=== PATIENT | male | born 1985 | race Caucasian/White ===

== ENCOUNTER 2019-06-29 14:16 | Emergency (ER) | payer BC ==
[2019-06-29 14:22] VITALS: RESP 18; TEMP 99
[2019-06-29] MEDS ORDERED: KETOROLAC 30 MG/ML 1 ML VIAL IVP STA (14:32)
[2019-06-29] MEDS ORDERED: SODIUM CHLORIDE 0.9% 2,000 ML IV STA (14:32)
[2019-06-29] MEDS ORDERED: ONDANSETRON 4 MG/2 ML VIAL IVP STA (14:32)
--- NOTE | 2019-06-29 14:53 | ED ---
Abdominal Pain HPI - General Chief Complaint: Abdominal Pain Stated Complaint: Kidney Stone Time Seen by Provider: 06/29/19 14:26 Source: patient, RN notes reviewed Mode of arrival: ambulatory Limitations: no limitations - History of Present Illness Initial Comments: This a 33-year-old male presents emergency Department chief complaint of severe left flank pain. Patient states this started yesterday morning at 3 AM. Patient states that the pain is very similar to his prior kidney stones. Patient's had some nausea and vomiting no diarrhea no constipation no prior abdominal surgeries. Patient states that this pain is unbearable this point. He did try some medications at home with no relief the symptoms he states there is slight dysuria no hematuria. He did take some Pyridium. Patient denies chest pain, shortness breath, fever, chills. - Related Data Previous Rx's Medication Instructions Recorded Ketorolac [Toradol] 10 mg PO Q8HR #15 tab 06/29/19 Ondansetron Odt [Zofran Odt] 4 mg PO Q8HR PRN #10 tab 06/29/19 Tamsulosin [Flomax] 0.4 mg PO DAILY #7 cap 06/29/19 Allergies Allergy/AdvReac Type Severity Reaction Status Date / Time No Known Allergies Allergy Verified 06/29/19 14:18 Review of Systems ROS Statement: Those systems with pertinent positive or pertinent negative responses have been documented in the HPI. ROS Other: All systems not noted in ROS Statement are negative. Past Medical History Additional Past Medical History / Comment(s): kidney stones History of Any Multi-Drug Resistant Organisms: None Reported Past Surgical History: No Surgical Hx Reported Past Psychological History: No Psychological Hx Reported Smoking Status: Never smoker Past Alcohol Use History: None Reported Past Drug Use History: None Reported General Exam Limitations: no limitations General appearance: alert, in no apparent distress Head exam: Present: atraumatic, normocephalic, normal inspection Eye exam: Present: normal appearance, PERRL, EOMI. Absent: scleral icterus, conjunctival injection, periorbital swelling Respiratory exam: Present: normal lung sounds bilaterally. Absent: respiratory distress, wheezes, rales, rhonchi, stridor Cardiovascular Exam: Present: regular rate, normal rhythm, normal heart sounds. Absent: systolic murmur, diastolic murmur, rubs, gallop, clicks GI/Abdominal exam: Present: soft, normal bowel sounds. Absent: distended, tenderness, guarding, rebound, rigid Back exam: Present: CVA tenderness (L). Absent: CVA tenderness (R) Neurological exam: Present: alert, oriented X3, CN II-XII intact Skin exam: Present: warm, dry, intact, normal color. Absent: rash Course Vital Signs 06/29/19 14:18 Temperature 99 F Pulse Rate 85 Respiratory 18 Rate Blood Pressure 140/88 O2 Sat by Pulse 97 Oximetry - Reevaluation(s) Reevaluation #1: 06/29/19 16:27 Patient reevaluated and updated on results patient is resting comfortably and has no complaints of pain. Medical Decision Making - Medical Decision Making Patient presented for left flank pain. Patient found to have a 3 mm UVJ stone. Patients pain has resolved this time. Patient discharged with Toradol, Zofran, Flomax and, according. Return parameters discussed. Patient was nitrite positive those contaminant from taking Pyridium. - Lab Data Result diagrams: 06/29/19 15:10 06/29/19 15:10 Lab Results 06/29/19 06/29/19 06/29/19 Range/Units 15:10 15:10 15:10 WBC 14.7 H (3.8-10.6) k/uL RBC 4.84 (4.30-5.90) m/uL Hgb 14.8 (13.0-17.5) gm/dL Hct 43.1 (39.0-53.0) % MCV 89.0 (80.0-100.0) fL MCH 30.6 (25.0-35.0) pg MCHC 34.4 (31.0-37.0) g/dL RDW 12.9 (11.5-15.5) % Plt Count 251 (150-450) k/uL Neutrophils % 85 % Lymphocytes % 10 % Monocytes % 4 % Eosinophils % 0 % Basophils % 0 % Neutrophils # 12.5 H (1.3-7.7) k/uL Lymphocytes # 1.4 (1.0-4.8) k/uL Monocytes # 0.6 (0-1.0) k/uL Eosinophils # 0.1 (0-0.7) k/uL Basophils # 0.0 (0-0.2) k/uL Sodium 136 L (137-145) mmol/L Potassium 4.1 (3.5-5.1) mmol/L Chloride 102 (98-107) mmol/L Carbon Dioxide 25 (22-30) mmol/L Anion Gap 9 mmol/L BUN 19 (9-20) mg/dL Creatinine 1.41 H (0.66-1.25) mg/dL Est GFR (CKD-EPI)AfAm 76 (>60 ml/min/1.73 sqM) Est GFR (CKD-EPI)NonAf 66 (>60 ml/min/1.73 sqM) Glucose 114 H (74-99) mg/dL Calcium 9.3 (8.4-10.2) mg/dL Total Bilirubin 1.3 (0.2-1.3) mg/dL AST 26 (17-59) U/L ALT 29 (4-49) U/L Alkaline Phosphatase 77 (38-126) U/L Total Protein 7.9 (6.3-8.2) g/dL Albumin 4.5 (3.5-5.0) g/dL Amylase 39 (30-110) U/L Lipase 27 (23-300) U/L Urine Color Dark Brown Urine Appearance Clear (Clear) Urine pH 5.5 (5.0-8.0) Ur Specific [place] 1.043 H (1.001-1.035) Urine Protein Trace H (Negative) Urine Glucose (UA) Negative (Negative) Urine Ketones Negative (Negative) Urine Blood Negative (Negative) Urine Nitrite Positive (Negative) Urine Bilirubin 1+ H (Negative) Urine Urobilinogen 3.0 (<2.0) mg/dL Ur Leukocyte Esterase Negative (Negative) Urine RBC 3 (0-5) /hpf Urine WBC 2 (0-5) /hpf Ur Squamous Epith Cells 2 (0-4) /hpf Calcium Oxalate Crystal Moderate H (None) /hpf Urine Mucus Moderate H (None) /hpf Disposition Clinical Impression: Left ureteral calculus Disposition: HOME SELF-CARE Condition: Stable Instructions (If sedation given, give patient instructions): Kidney Stones (ED) Additional Instructions: Please return to the Emergency Department if symptoms worsen or any other concerns. Prescriptions: Tamsulosin [Flomax] 0.4 mg PO DAILY #7 cap Ketorolac [Toradol] 10 mg PO Q8HR #15 tab Ondansetron Odt [Zofran Odt] 4 mg PO Q8HR PRN #10 tab PRN Reason: Nausea Is patient prescribed a controlled substance at d/c from ED?: No Referrals: None,Stated [Primary Care Provider] - 1-2 days Ke Bunn MD [STAFF PHYSICIAN] - 1-2 days Time of Disposition: 16:30
[2019-06-29 15:27] LABS: Basophils % (A) 0 %; Eosinophils # (A) 0.1 k/uL (0-0.7); Eosinophils % (A) 0 %; HCT 43.1 % (39.0-53.0); HGB 14.8 gm/dL (13.0-17.5); Lymphocytes # (A) 1.4 k/uL (1.0-4.8); Lymphocytes % (A) 10 %; MCH 30.6 pg (25.0-35.0); MCHC 34.4 g/dL (31.0-37.0); Mean Platelet Volume 7.6; Monocytes # (A) 0.6 k/uL (0-1.0); Monocytes % (A) 4 %; Neutrophils # (A) 12.5 k/uL (1.3-7.7); Neutrophils % (A) 85 %; Platelet Count 251 k/uL (150-450); RBC 4.84 m/uL (4.30-5.90); RDW 12.9 % (11.5-15.5); WBC 14.7 k/uL (3.8-10.6)
[2019-06-29 15:31] LABS: Appearance,Urine Clear (Clear); Bilirubin,Urine 1+ (Negative); Blood,Urine Negative (Negative); Calcium Oxalate Crystals,Urine Moderate /hpf; Color,Urine Dark Brown; Glucose,Urine (UA) Negative (Negative); Ketones,Urine Negative (Negative); Leukocyte Esterase,Urine Negative (Negative); Mucus,Urine Moderate /hpf; Nitrite,Urine Positive (Negative); PH, Urine 5.5 (5.0-8.0); Protein,Urine Trace (Negative); RBC,Urine 3 /hpf (0-5); Specific Gravity,Urine 1.043 (1.001-1.035); Squamous Epithelial Cell,Urine 2 /hpf (0-4); WBC,Urine 2 /hpf (0-5)
--- NOTE | 2019-06-29 15:40 | XR ---
EXAMINATION TYPE: XR KUB DATE OF EXAM: 06/29/2019 COMPARISON: NONE HISTORY: Pain TECHNIQUE: Single supine KUB image of the abdomen is obtained FINDINGS: Small bowel demonstrates no evidence for dilatation or air fluid levels. Gas and fecal material is seen in non-distended colon. No convincing evidence for pneumoperitoneum. No unusual calcifications. The lung bases are clear. The osseous structures are intact. IMPRESSION: 1. Overall nonobstructive bowel gas pattern.
[2019-06-29 15:46] LABS: Albumin 4.5 g/dL (3.5-5.0); Calcium 9.3 mg/dL (8.4-10.2); Potassium 4.1 mmol/L (3.5-5.1); Total Bilirubin 1.3 mg/dL (0.2-1.3); Total Protein 7.9 g/dL (6.3-8.2)
[2019-06-29] MEDS ORDERED: HYDROmorphone 0.5 MG/0.5 ML SYRINGE IVP STA (15:47)
--- NOTE | 2019-06-29 16:11 | CT ---
EXAMINATION TYPE: CT abdomen pelvis wo con DATE OF EXAM: 06/29/2019 COMPARISON: None HISTORY: LEFT FLANK PAIN CT DLP: 931.1 mGycm Examination of the solid and hollow viscera is limited given the lack of contrast. FINDINGS: LUNG BASES: No evidence for nodule. No evidence for infiltrate. LIVER/GB: The gallbladder is unremarkable. No space-occupying hepatic lesion. PANCREAS: No pancreatic mass identified. No inflammatory process seen. SPLEEN: No evidence for splenomegaly. No intrasplenic lesions seen. ADRENALS: No adrenal nodules identified. No evidence for thickening. KIDNEYS: 3 mm calculus at the level of the left UVJ resulting in mild left-sided hydroureter nephrosi s. Mild perinephric stranding and renal edema. Underlying infection not excluded. No additional left- sided calculi seen. Right kidney demonstrates 3 nonobstructing calculi measuring up to 3 mm. BOWEL: Appendix has a normal appearance. No evidence of bowel obstruction. No inflammatory process. Lymph nodes: No evidence for adenopathy greater than 1 cm. Abdominal aorta: Atheromatous changes seen. No evidence for aneurysm. Genital organs: No significant abnormality. Other: No significant abnormality. IMPRESSION: 3 mm calculus at the level of the left UVJ resulting in mild left-sided hydroureter nephrosis.
[2019-06-29] MEDS ORDERED: ACET/COD 300 MG/30 MG STARTER PACK 6 TAB BTL PO STA (16:30)
[2019-06-29 16:56] VITALS: BP 134/83; PULSE 72
== END 2019-06-29 16:53 | disposition home or self-care (01) ==
LOC: EC 14:16
DX: N20.1 Calculus of ureter (principal)
CPT/HCPCS: 36415; 80053; 82150; 83690; 85025; 81001; 74018; 74176; 99284; 96374; 96375 ×2; 96361 ×2; J2405; J1885; J1170

== ENCOUNTER → 2019-07-03 | Outpatient (CLI) | payer BC ==
--- NOTE | 2019-07-03 20:06 | XR ---
EXAMINATION TYPE: XR KUB DATE OF EXAM: 07/03/2019 COMPARISON: 06/29/2019 INDICATION: Kidney stone left TECHNIQUE: Single view abdomen supine view FINDINGS: There is a normal bowel gas pattern. Psoas margins are normal. No organomegaly is present. In the midportion of the left abdomen is a 1.0 cm ill-defined slightly increased area of density whic h overlies the transverse colon. This could be a proximal left ureteral stone. No additional suspicio us areas for calcification are identified. IMPRESSION: 1. A 1 cm calcification in the proximal left ureter is not excluded. No additional suspicious calcifi cations are evident.
== END | disposition home or self-care (01) ==
LOC: RADXRMAIN 19:53
PROVIDERS: ATTEND Urology
DX: N20.0 Calculus of kidney (principal)
CPT/HCPCS: 74018